=== PATIENT | male | born 1965 | race Caucasian/White ===

== ENCOUNTER 2020-03-13 10:58 | Emergency (ER) | payer MEDICAID ==
[2020-03-13] MEDS ORDERED: Cephalexin 500 MG Cap ONE (12:00)
--- NOTE | 2020-03-13 12:43 | CR ---
DATE OF SERVICE: 03/13/20 CLINICAL DATA: laceration LEFT THUMB: There is soft tissue swelling throughout the thumb. There is a minimally displaced, comminuted fracture through the tuft of the distal phalanx. There is adjacent soft tissue deformity. No other acute abnormalities. [id number] [facility]
--- NOTE | 2020-03-13 16:11 | ER ---
REASON FOR EMERGENCY ROOM VISIT: Injury to left thumb. HISTORY: This previously healthy 54-year-old man was using an antique briseida pigeon thrower, when the arm was inadvertently triggered and it came around and struck the end of the tip of his left thumb. He states that his thumbnail was immediately avulsed and he suffered significant pain and swelling as well as a laceration from this type of injury. He wrapped it up and came to the emergency room to be evaluated. He states that he is up to date on his tetanus vaccinations. MEDICATIONS: None. ALLERGIES: TO ERYTHROMYCIN BASE AND PENICILLIN G. PHYSICAL EXAMINATION: GENERAL: He is a calm and alert man, in no acute distress. EXTREMITIES: Examination of his left distal thumb reveals some swelling and obvious contusion involving the distal phalanx. He has a transverse laceration that is slightly irregular over the volar aspect of the tip of his left thumb. His nail has completely gone. The tip of the thumb itself looks completely viable. FURTHER EMERGENCY ROOM COURSE: The thumb was soaked in surgical soap and water for a minimum of 30 minutes. An x-ray of the thumb was obtained and it does show a tuft fracture as well as perhaps a small more proximal phalanx fracture involving the distal phalanx. Further emergency room course, after painting with Betadine, local anesthesia was satisfactorily obtained with the use of approximately 8 mL of 1% plain Xylocaine. Some of this was placed in the form of a digital block. I inspected the wound itself. Once satisfactory local anesthetic had been achieved, there was no evidence of foreign body or bony fragments. I then approximated the skin edges with 3 interrupted 3-0 monofilament nylon sutures. The central most suture was placed in a vertical mattress fashion. The laceration itself was 2 cm in length. This gave us excellent approximation of the skin edges. I inspected the nail bed and it appeared to be free of any evidence of foreign body. The area was cleansed again with Betadine. The wound including the nail bed were covered with bacitracin ointment and a nonadherent Telfa pad. A dressing of tube gauze was placed over this. IMPRESSION: Left thumb laceration with underlying distal phalanx fracture as described above. PLAN: Because this is an open fracture of his phalanx, I went ahead and placed him on oral Keflex 500 mg p.o. q.i.d. x5 days and asked to have him follow up with Dr. Rivera in the office on or Saturday of this week. I emphasized the importance of this and explained that there may be an increased risk for bone infection involving that phalanx without antibiotic coverage. He understands and agrees to this plan. Symptoms and signs of infection were discussed as well as wound management and removal of dressing, etc. All questions were answered. ABBEY/BRITTANY /[id number]
== END 2020-03-13 12:40 | disposition home or self-care (01) ==
LOC: LB.ED 10:58
DX: S62.522B Displaced fracture of distal phalanx of left thumb, initial encounter for open fracture (principal); Z88.1 Allergy status to other antibiotic agents; Z88.0 Allergy status to penicillin; W31.89XA Contact with other specified machinery, initial encounter
CPT/HCPCS: 12001; 73140-FA; 99282; 99283-25; A9270-GY